=== PATIENT | male | born 1995 ===

== ENCOUNTER 2020-01-06 11:13 | Outpatient (CLI) | payer OTHER ==
--- NOTE | 2020-01-06 11:49 | RAD ---
Exam: XR Tib Fib Lt Leg 2 View HISTORY: Injury to left lower leg 2 weeks ago. COMPARISON: Views left ankle on 01/04/2020 FINDINGS: Soft tissue swelling at the lateral aspect left ankle has slightly improved. There is suggestion of a small joint effusion at the ankle. No acute fracture, dislocation, or other acute osseous abnormality is identified. IMPRESSION: 1. No acute osseous abnormality is identified. 2. Mild improvement in soft tissue swelling lateral aspect left ankle There is suggestion of a small joint effusion at the ankle.
== END 2020-01-06 11:14 | disposition home or self-care (01) ==
LOC: SCSRAD 11:13
PROVIDERS: ATTEND Family Medicine
DX: M79.605 Pain in left leg (principal); M79.89 Other specified soft tissue disorders

== ENCOUNTER 2021-08-29 12:27 | Emergency (ER) | payer OTHER ==
[~2021-08-29 12:27] MED LIST: Iopamidol-370 76% 500 ML 1 ML ONE
[2021-08-29 14:26] LABS: Bilirubin Negative (Negative); Blood, Urine Negative (Negative); Clarity Clear (Clear); Glucose, Urine (Dipstick) Normal (Negative); Ketone, Urine Negative (Negative); Leukocyte Negative Leu/uL (Negative); Nitrite Negative (Negative); Protein, Urine (Dipstick) Negative (Neg-Trace); Urobilinogen Normal mg/dL (Less than 2)
[2021-08-29 15:58] LABS: #Basophils 0.1 thou/uL (0.0-0.2); #Eosinphils 0.1 thou/uL (0.0-0.7); #Lymphocytes 2.3 thou/uL (1.20-3.40); #Neutrophils 3.4 thou/uL (1.40-6.50); %Basophils 1.1 % (0.0-1.0); %Eosinophils 1.4 % (0.0-10.0); %Lymphocytes 34.3 % (21.0-51.0); %Monocytes 13.8 % (0.0-10.0); %Neutrophils 49.4 % (42.0-75.0); Hemoglobin 15.9 g/dL (14.0-18.0); Mean Corpuscular HGB CONC 32.7 g/dL (32.0-36.0); Mean Corpuscular Hemoglobin 30.1 pg (27.0-31.0); Mean Corpuscular Volume 92.2 fL (78.0-98.0); Mean Platelet Volume 8.4 fL (7.4-10.4); Platelet Count 199 thou/uL (130-400); RBC Distribution Width 11.4 % (11.5-14.5); Red Blood Cell (RBC) Count 5.28 mill/uL (4.70-6.10); White Blood Cell (WBC) Count 6.8 thou/uL (4.8-10.8)
[2021-08-29 16:19] LABS: ALT (SGPT) 26 U/L (8-55); AST (SGOT) 18 U/L (5-34); Albumin 4.5 g/dL (3.5-5.0); Alkaline Phosphatase 103 U/L (40-110); Anion Gap 11 mmol/L (10-20); BUN (Urea Nitrogen) 12 mg/dL (8.9-20.6); Bilirubin, Total 0.7 mg/dL (0.2-1.2); Calc. Creatinine Clearance 0 mL/min (70-130); Calcium 9.7 mg/dL (7.8-10.44); Carbon Dioxide 30 mmol/L (22-29); Chloride 104 mmol/L (98-107); Globulin 3.3 g/dL (2.4-3.5); Glucose 87 mg/dL (70-105); Potassium 4.1 mmol/L (3.5-5.1); Protein, Total 7.8 g/dL (6.0-8.3); Sodium 141 mmol/L (136-145)
[2021-08-29] MEDS ORDERED: Vancomycin 1 GM/200 ML BAG ONE (17:57)
[2021-08-29] MEDS ORDERED: cefTRIAXone\\ROCEPHIN 1 GM VIAL ONE (17:57)
[2021-09-01 18:06] LABS: Chlam.trachomatis by PCR,Urine Not Detected (NotDetected)
== END 2021-08-29 19:27 | disposition home or self-care (01) ==
LOC: ERS 12:27
DX: N48.89 Other specified disorders of penis (principal); N43.3 Hydrocele, unspecified; R59.1 Generalized enlarged lymph nodes
CPT/HCPCS: 74177; 76870; 80053; 81003; 85025; 87491; 87591; 93976; 94760; 96365; 96367; J0696; J3370; Q9967